=== PATIENT | female | born 1960 | race Caucasian/White ===

== ENCOUNTER 2022-11-24 08:00 | Outpatient (CLI) | payer BC | END 2022-11-24 23:59 | disposition home or self-care (01) | LOC: LAB.S 08:00 | PROVIDERS: ATTEND Physician Assistant | DX: R30.0 Dysuria (principal) | CPT/HCPCS: 87086; 87181 ==

== ENCOUNTER 2023-05-19 20:32 | Emergency (ER) | payer BC ==
[2023-05-19 21:05] LABS: BASOPHILS % (AUTO) 0.2 %; EOSINOPHILS # (AUTO) 0.1 10^3/uL (0.0-0.7); EOSINOPHILS % (AUTO) 1.1 %; HCT - HEMATOCRIT 44.3 % (37.0-47.0); HGB - HEMOGLOBIN 14.6 g/dL (12.0-16.0); LYMPHOCYTES # (AUTO) 1.5 10^3/uL (1.5-3.5); LYMPHOCYTES % (AUTO) 18.1 %; MEAN CORPUSCULAR HEMOGLOBIN 29.3 pg (27.0-31.0); MEAN CORPUSCULAR VOLUME 88.8 fL (81.0-99.0); MONOCYTES # (AUTO) 0.7 10^3/uL (0.0-1.0); MONOCYTES % (AUTO) 7.8 %; NEUTROPHILS # (AUTO) 6.1 10^3/uL (1.5-6.6); NEUTROPHILS % (AUTO) 72.4 %; PLT - PLATELET COUNT 292 10^3/uL (130-450); RED BLOOD COUNT 4.99 10^6/uL (4.20-5.40); RED CELL DISTRIBUTION WIDTH 12.1 % (12.0-15.0); WHITE BLOOD COUNT 8.4 x10^3/uL (4.8-10.8)
[2023-05-19 21:26] LABS: ALBUMIN 4.4 g/dL (3.2-5.5); ALBUMIN/GLOBULIN RATIO 1.5 (1.0-2.2); BILIRUBIN,TOTAL 1.1 mg/dL (0.2-1.0); CALCIUM 9.2 mg/dL (8.5-10.3); CREATININE 0.8 mg/dL (0.6-1.3); POTASSIUM 3.2 mmol/L (3.5-4.5); TOTAL PROTEIN 7.3 g/dL (6.4-8.9)
[2023-05-19 21:34] LABS: BILIRUBIN,URINE SMALL (NEGATIVE); GLUCOSE, URINE (UA) NEGATIVE (NEGATIVE); KETONES,URINE (UA) 40 mg/dL (NEGATIVE); LEUKOCYTE ESTERASE, URINE TRACE (NEGATIVE); NITRITE,URINE NEGATIVE (NEGATIVE); OCCULT BLOOD,URINE NEGATIVE (NEGATIVE); PROTEIN,URINE NEGATIVE (NEGATIVE); UROBILINOGEN,URINE 0.2 (NORMAL) E.U./dL (NORMAL)
[2023-05-19 21:39] LABS: BACTERIA,URINE Few /HPF (None Seen); CLARITY,URINE CLOUDY (CLEAR); RBC,URINE 0-5 /HPF (0-5); SQUAMOUS EPITHELIAL CELL,UR FEW Squamous (<= Few)
[2023-05-19] MEDS ORDERED: iohexoL-300 100 ML VIAL ONE (21:46)
--- NOTE | 2023-05-19 21:52 | ED Physician Documentation ---
PD HPI ABD PAIN - Stated complaint Stated Complaint: ABD PX/VOMIT - Chief complaint Chief Complaint: Abd Pain - History obtained from History obtained from: Patient - Additional information Additional information: 63yF with pmh pre-diabetes on mounjaro injections (started 7 weeks ago) p/w cramping/bloating abdominal pain with associated nausea/vomiting X 3 day, and 12-15 episodes of mucus liquid yellow stool today. also with chills. denies fever, back pain, urinary symptoms. pain is currently improved to 5/10. PSH open R oopherectomy (benign mass). passing normal flatus. Review of Systems Constitutional: reports: Chills. denies: Fever Cardiac: denies: Chest pain / pressure Respiratory: denies: Dyspnea GI: reports: Abdominal Pain, Nausea, Vomiting, Diarrhea. denies: Bloody / black stool : denies: Dysuria, Frequency, Hematuria Musculoskeletal: denies: Back pain PD PAST MEDICAL HISTORY - Past Medical History Past Medical History: No - Past Surgical History Past Surgical History: Yes /HAND TUBE BENDER: Other HEENT: Tonsil/Adenoidectomy - Present Medications Home Medications: Ambulatory Orders Medication Instructions Recorded Confirmed Ondansetron Odt [Zofran Odt] 4 mg TL Q6H PRN #10 tablet 05/19/23 - Allergies Allergies/Adverse Reactions: Allergies Allergy/AdvReac Type Severity Reaction Status Date / Time Penicillins Allergy Rash Verified 05/19/23 20:44 - Social History Does the pt smoke?: No Smoking Status: Never smoker Does the pt drink ETOH?: No Does the pt have substance abuse?: No - Immunizations Immunizations are current?: Yes PD ED PE NORMAL - Vitals Vital signs reviewed: Yes - General General: Alert and oriented X 3, No acute distress, Well developed/nourished - HEENT HEENT: Atraumatic, PERRL, EOMI, Moist mucous membranes, Pharynx benign - Neck Neck: Supple, no meningeal sign - Cardiac Cardiac: RRR - Respiratory Respiratory: No respiratory distress, Clear bilaterally - Abdomen Abdomen: Non tender, Non distended - Back Back: No CVA TTP - Derm Derm: Normal color, Warm and dry - Extremities Extremities: No deformity - Neuro Neuro: No motor deficit, No sensory deficit Results - Vitals Vitals: Vital Signs - 24 hr 05/19/23 05/19/23 20:44 21:00 Temperature 36.5 C Heart Rate 100 71 Respiratory 16 15 Rate Blood Pressure 130/90 H 120/85 H O2 Saturation 98 97 Oxygen O2 Source Room air - Labs Labs: Laboratory Tests 05/19/23 05/19/23 05/19/23 20:56 20:56 21:26 WBC 8.4 RBC 4.99 Hgb 14.6 Hct 44.3 MCV 88.8 MCH 29.3 MCHC 33.0 RDW 12.1 Plt Count 292 MPV 10.0 Neut # (Auto) 6.1 Lymph # (Auto) 1.5 Barron # (Auto) 0.7 Eos # (Auto) 0.1 Baso # (Auto) 0.0 Absolute Nucleated RBC 0.00 Nucleated RBC % 0.0 Sodium 138 Potassium 3.2 L Chloride 102 Carbon Dioxide 28 Anion Gap 8.0 BUN 17 Creatinine 0.8 Estimated GFR (MDRD) 72 L Glucose 96 Calcium 9.2 Total Bilirubin 1.1 H AST 14 ALT 14 Alkaline Phosphatase 67 Total Protein 7.3 Albumin 4.4 Globulin 2.9 Albumin/Globulin Ratio 1.5 Lipase 56 Urine Color YELLOW Urine Clarity CLOUDY Urine pH 6.0 Ur Specific [place] 1.025 Urine Protein NEGATIVE Urine Glucose (UA) NEGATIVE Urine Ketones 40 H Urine Occult Blood NEGATIVE Urine Nitrite NEGATIVE Urine Bilirubin SMALL H Urine Urobilinogen 0.2 (NORMAL) Ur Leukocyte Esterase TRACE H Urine RBC 0-5 Urine WBC 6-10 H Ur Squamous Epith Cells FEW Squamous Urine Bacteria Few Ur Microscopic Review INDICATED Urine Culture Comments INDICATED PD Medical Decision Making - ED course ED course: 63yF presents to the ED with n/v/d X 3 days and bloating abdominal pain today. cbc, abdominal panel was benign with exception of mild hypokalemia of 3.2. potassium repleted through IV. 1 L NS provided for dehydration. nausea improved s/p 4mg IV zofran, 20 mg pepcid. abdominal bloating improved with gas-X orally. shared decision made to pursue CT to r/o appendicitis, diverticulitis, other abdominal pathology . doubt complete sbo given patient is passing copious liquid per rectum today. ct showed gastroenteritis. incidental findings d/w patient. plan to dc home to f/u pcp. return precautions given. Departure - Departure Disposition: Home, Self Care Clinical Impression: Viral gastroenteritis Condition: Stable Instructions: ED Gastroenteritis Viral Prescriptions: Ondansetron Odt [Zofran Odt] 4 mg TL Q6H PRN #10 tablet PRN Reason: Nausea / Vomiting Comments: You were seen in the emergency department and diagnosed with gastroenteritis. You should stay well hydrated and get lots of rest. A prescription for zofran antinausea medicine was printed for you. Please follow-up with your primary care provider and return to the emergency department if you have any new or worsening symptoms or other concerns. Forms: PCP List
[2023-05-19] MEDS: SODIUM CHLORIDE 0.9% 1,000 ML IV STA (21:54)
[2023-05-19] MEDS: SIMETHICONE CHEW 80 MG TABLET PO STA (21:54)
[2023-05-19] MEDS: FAMOTIDINE 20 MG/2 ML VIAL IVP STA (21:54)
[2023-05-19] MEDS: POTASSIUM CHLOR 10 MEQ/100 ML 10 MEQ/100 ML BAG IV STA (21:54)
[2023-05-19] MEDS: ONDANSETRON 4 MG/2 ML VIAL IVP STA (21:54)
[2023-05-19] MEDS: iohexoL-300 100 ML VIAL IVP ONE (22:22)
--- NOTE | 2023-05-19 22:49 | CT Report ---
PROCEDURE: Abdomen/Pelvis W INDICATIONS: diffuse abdominal pain, n/v/d X 3 days CONTRAST: 100mL Omni 300 TECHNIQUE: After the administration of intravenous contrast, a CT scan of the abdomen and pelvis was performed. Images were recorded and evaluated at appropriate window settings. Reformats: coronal and sagittal. F or radiation dose reduction, the following was used: automated exposure control, adjustment of mA and /or kV according to patient size. COMPARISON: None. FINDINGS: Image quality: Diagnostic. Lower chest: Unremarkable. Liver: Liver is normal in size and attenuation. There are several subcentimeter hypodensities through out the liver, most with attenuation suggesting cysts, some may be hemangiomas with slightly increase d attenuation. No definite solid mass. Gallbladder and biliary tree: Normal wall thickness. No calcifications in the gallbladder. Nondilated biliary tree. Spleen: No splenomegaly. Pancreas: Normal pancreas. Adrenals: No adrenal nodule. Kidneys and ureters: Symmetric enhancement. Several tiny cortical cysts. Right extrarenal pelvis or p arapelvic cyst present. No hydroureter or ureterolithiasis. Stomach, bowel and peritoneum: The distal stomach demonstrates diffuse mucosal hyperemia. Several bow el loops are slightly prominent with air-fluid levels, occasional distal small bowel wall thickening without transition point to suggest obstruction. There is semisolid stool throughout the colon with a ir-fluid levels present. Left upper quadrant colon wall spasm and mild hyperemia. No focal inflammati on. Normal appendix. Lymph nodes: No central or retroperitoneal adenopathy. Vessels: No infrarenal aortic aneurysm. PELVIS Reproductive organs: Retroverted uterus with a posterior fundal hypodense mass. Exophytic peripherall y calcified anterior fundal mass. Normal CT appearance of ovaries. Bladder: No abnormal wall thickening, accounting for underdistention. Pelvic lymph nodes: No pelvic adenopathy by size criteria. Bones: No aggressive osseous abnormality. Other: No significant ventral or inguinal hernia. IMPRESSION: Findings consistent with gastroenteritis, most likely infectious, secondarily inflammatory. Incidental findings of polycystic liver and kidney disease. Reviewed by: Christen Simmons MD on 05/19/2023 10:47 PM PST Approved by: Christen Simmons MD on 05/19/2023 10:47 PM PST Station ID: [id number]
[2023-05-19] MEDS: oxyCODONE 5 MG TABLET PO STA (23:31)
[2023-05-19] MEDS: ACETAMINOPHEN 325 MG TABLET PO STA (23:31)
[2023-05-20 00:14] VITALS: BP 154/80; O2SAT 98
== END 2023-05-20 00:15 | disposition home or self-care (01) ==
LOC: ED 20:32
DX: K52.9 Noninfective gastroenteritis and colitis, unspecified (principal)
CPT/HCPCS: 36415; 74177; 80053; 81001; 83690; 85025; 87086; 96361; 96365; 96375; 99284; A9270; Q9967; 81003